=== PATIENT | male | born 1995 | race Caucasian/White ===

== ENCOUNTER 2022-02-28 19:20 | Inpatient (IN) | payer MEDICAID ==
[~2022-02-28] VITALS: Ht 182.9 cm; Wt 72.4 kg
[2022-02-28] MEDS ORDERED: LORazepam 2 MG TABLET PO PRN (19:30)
[2022-02-28] MEDS ORDERED: HALOPERIDOL 5 MG TABLET PO PRN (19:30)
[2022-02-28] MEDS ORDERED: ZOLPIDEM TARTRATE 10 MG TABLET PO PRN (19:30)
[2022-02-28] MEDS ORDERED: INFLUENZA VIRUS VACCINE QVS 2022-23 (6MO+)/PF 60 MCG/0.5 ML SYRINGE IM. ONE (20:00)
[2022-02-28] MEDS ORDERED: LURA40TA2 PO (20:05)
[2022-02-28] MEDS ORDERED: QUET25TA PO (20:06)
[2022-02-28] MEDS ORDERED: BUPR-225 PO (20:06)
[2022-02-28 20:59] VITALS: BP 120/76
[2022-03-01 08:09] LABS: BASOPHILS % (AUTO) 0.7 % (0.0-2.0); EOSINOPHILS % (AUTO) 2.5 % (1.0-6.0); HEMATOCRIT 43.8 % (41-53); HEMOGLOBIN 14.6 g/dL (13.5-17.5); LYMPHOCYTES # (AUTO) 1.3 K/uL (1.0-4.8); LYMPHOCYTES % (AUTO) 21.6 % (22.0-44.0); MEAN CORPUSCULAR HEMOGLOBIN 29.5 pg (26.0-34.0); MEAN CORPUSCULAR HGB CONC 33.3 G/dL (31.0-37.0); MEAN CORPUSCULAR VOLUME 89 fL (80-100); MONOCYTES # (AUTO) 0.4 K/uL (0.1-1.0); MONOCYTES % (AUTO) 6.8 % (2.0-9.0); NEUTROPHILS # (AUTO) 4.1 K/uL (1.8-7.7); NEUTROPHILS % (AUTO) 68.4 % (40.0-70.0); PLATELET COUNT (AUTO) 194 K/uL (150-450); RED BLOOD CELL COUNT(AUTO) 4.94 MIL/uL (4.50-5.90); RED CELL DISTRIBUTION WIDTH 13.2 % (11.5-14.5)
[2022-03-01 08:24] LABS: HEMOGLOBIN A1C 5.3 % (3.8-5.6)
[2022-03-01 08:41] LABS: FREE T4 (FREE THYROXINE) 1.08 ng/dL (0.76-1.46); THYROID STIMULATING HORMONE 1.78 uIU/mL (0.36-3.74)
[2022-03-01 08:59] VITALS: BP 123/70
[2022-03-01] MEDS ORDERED: ALBUTEROL SULFATE HFA 90 MCG/PUFF 8 GM INHALER IH PRN (09:30)
[2022-03-01] MEDS ORDERED: IBUPROFEN 600 MG TABLET PO PRN (09:30)
[2022-03-01] MEDS ORDERED: BACITRACIN 28 GM OINTMENT TP PRN (09:30)
[2022-03-01] MEDS ORDERED: MAG HYDROX/AL HYDROX/SIMETH ES 30 ML SUSPENSION UDCUP PO PRN (09:30)
[2022-03-01] MEDS ORDERED: ACETAMINOPHEN 325 MG TABLET PO PRN (09:30)
[2022-03-01] MEDS ORDERED: OMEPRAZOLE 20 MG CAPSULE PO PRN (09:30)
[2022-03-01] MEDS ORDERED: MAGNESIUM HYDROXIDE SUSPENSION 30 ML UDCUP PO PRN (09:30)
[2022-03-01] MEDS ORDERED: CloNIDine HCL 0.1 MG TABLET PO PRN (09:30)
[2022-03-01] MEDS ORDERED: LOPERAMIDE HCL 2 MG CAPSULE PO PRN (09:30)
[2022-03-01] MEDS ORDERED: DOCUSATE SODIUM 100 MG CAPSULE PO PRN (09:30)
[2022-03-01] MEDS ORDERED: ONDANSETRON HCL 4 MG TABLET PO PRN (09:30)
[2022-03-01] MEDS ORDERED: PETROLATUM,WHITE 28 GM JELLY TP PRN (09:30)
[2022-03-01] MEDS ORDERED: BENZOCAINE/MENTHOL LOZENGE PO PRN (09:30)
== END 2022-03-01 12:35 | disposition home or self-care (01) | DRG 753 ==
LOC: B3A 19:27
PROVIDERS: ADMIT Psychiatry & Neurology Child & Adolescent Psychiatry; ATTEND Psychiatry & Neurology Child & Adolescent Psychiatry
DX: F31.4 Bipolar disorder, current episode depressed, severe, without psychotic features (principal); F12.90 Cannabis use, unspecified, uncomplicated; F17.210 Nicotine dependence, cigarettes, uncomplicated; F20.9 Schizophrenia, unspecified; F41.9 Anxiety disorder, unspecified; G47.00 Insomnia, unspecified; K59.00 Constipation, unspecified; Z79.899 Other long term (current) drug therapy
CPT/HCPCS: 80061; 83036; 84439; 84443; 85025